=== PATIENT | female | born 1955 | race Caucasian/White ===

== ENCOUNTER 2016-06-06 11:01 | Day surgery (SDC) | payer BC ==
--- NOTE | ~2016-06-06 | EGD ---
EGD REPORT [facility] [address] [place] [address] NAME: KATHRYN DONG : [birth year] [facility]US : [facility] [place] PAT#: [id number] AGE: 60 ADM/REG DATE : 06/06/16 MR#: [id number] REPORT SERV DATE: 06/06/16 DICTATED BY: KATELYN ARREDONDO DATE: 06/06/16 REPORT STATUS : Draft [facility]ANSCRIBED BY: [facility] DATE: 06/06/16 [facility] Patient Name: Kathryn Dong Date of : 1955 Attending MD: KATELYN ARREDONDO MD Procedure Date No Time: 06/06/2016 Procedure: Colonoscopy Indications: Abnormal CT of the GI tract Medicines: Monitored Anesthesia Care Complications: No immediate complications. Procedure: Pre-Anesthesia Assessment: - ASA Grade Assessment: III - A patient with severe systemic disease. After I obtained informed consent, the scope was passed under direct vision. Throughout the procedure, the patient's blood pressure, pulse, and oxygen saturations were monitored continuously. The CF [id number] was introduced through the anus and advanced to the terminal ileum, with identification of the appendiceal orifice and IC valve. The colonoscopy was performed with moderate difficulty due to significant looping. Successful completion of the procedure was aided by applying abdominal pressure. The patient tolerated the procedure well. The quality of the bowel preparation was good. Findings: The digital rectal exam was normal. Pertinent negatives include no palpable rectal lesions. The terminal ileum appeared normal. A sessile polyp was found in the cecum. The polyp was 5 mm in size. The polyp was removed with a cold biopsy forceps. Resection and retrieval were complete. A sessile polyp was found in the transverse colon. The polyp was 5 mm in size. The polyp was removed with a cold biopsy forceps. Resection and retrieval were complete. A sessile polyp was found in the rectum. The polyp was 4 mm in size. The polyp was removed with a cold biopsy forceps. Resection and retrieval were complete. Hemorrhoids were found during retroflexion and were mild. Impression: - The examined portion of the ileum was normal. - One 5 mm polyp in the cecum. Resected and retrieved. - One 5 mm polyp in the transverse colon. Resected and retrieved. EGD REPORT [address] [place]. [address] NAME: KATHRYN DONG : [birth year] STATUS : [facility] [place] PAT#: [id number] AGE: 60 ADM/REG DATE : 06/06/16 MR#: [id number] REPORT SERV DATE: 06/06/16 DICTATED BY: KATELYN ARREDONDO DATE: 06/06/16 REPORT STATUS : Draft TRANSCRIBED BY: [employer] DATE: 06/06/16 - One 4 mm polyp in the rectum. Resected and retrieved. - Hemorrhoids. Recommendation: - Patient has a contact number available for emergencies. The signs and symptoms of potential delayed complications were discussed with the patient. Return to normal activities tomorrow. Written discharge instructions were provided to the patient. - Regular diet. - Await pathology results. - Repeat colonoscopy for surveillance based on pathology results. - Return to GI clinic in 4 weeks. - Use Levsin, NuLev (hyoscyamine) 0.125 mg 1-2 tabs SL q 4 hours PRN. Procedure Code(s): --- Professional --- 37360, Colonoscopy, flexible, proximal to splenic flexure; with biopsy, single or multiple Diagnosis Code(s): --- Professional --- K64.9, Unspecified hemorrhoids K62.1, Rectal polyp D12.3, Benign neoplasm of transverse colon D12.0, Benign neoplasm of cecum R93.3, Abnormal findings on diagnostic imaging of other parts of digestive tract CPT copyright 2013 [employer]. All rights reserved. The codes documented in this report are preliminary and upon business intelligence reporting analyst review may be revised to meet current compliance requirements. KATELYN ARREDONDO MD 06/06/2016 1:33 PM This report has been signed electronically. Number of Addenda: 0 Note Initiated On: 06/06/2016 1:00 PM Scope Withdrawal Time 0 hours 12 minutes 56 seconds [address] [place] [address]
--- NOTE | ~2016-06-06 | EGD ---
EGD REPORT [facility] [address] [address] NAME: KATHRYN DONG : [birth year] STATUS : PRE [facility] [place] PAT#: [id number] AGE: 60 ADM/REG DATE : MR#: [id number] REPORT SERV DATE: 06/06/16 DICTATED BY: KATELYN ARREDONDO DATE: 06/06/16 REPORT STATUS : Draft [facility]ANS[facility]IBED BY: [facility] DATE: 06/06/16 [facility]oscopy [facility] Patient Name: Kathryn Dong Date of : 1955 Attending MD: KATELYN ARREDONDO MD Procedure Date No Time: 06/06/2016 Procedure: Colonoscopy Indications: Screening in patient at increased risk: Colorectal cancer in father 60 or older Referring MD: KARLA OSCAR MD Medicines: Monitored Anesthesia Care Complications: No immediate complications. Procedure: Pre-Anesthesia Assessment: - ASA Grade Assessment: II - A patient with mild systemic disease. After I obtained informed consent, the scope was passed under direct vision. Throughout the procedure, the patient's blood pressure, pulse, and oxygen saturations were monitored continuously. The PCF [id number] was introduced through the anus and advanced to the terminal ileum, with identification of the appendiceal orifice and IC valve. The colonoscopy was performed without difficulty. The patient tolerated the procedure well. The quality of the bowel preparation was good. Findings: The digital rectal exam was normal. Pertinent negatives include no palpable rectal lesions. The terminal ileum appeared normal. Hemorrhoids were found during retroflexion and were moderate. A sessile polyp was found at the hepatic flexure. The polyp was 15 mm in size. The polyp was removed with a piecemeal technique using a cold snare. Resection and retrieval were complete. Two sessile polyps were found in the sigmoid colon. The polyps were 5 to 6 mm in size. These polyps were removed with a cold snare. Resection and retrieval were complete. Impression: - The examined portion of the ileum was normal. - Hemorrhoids. - One 15 mm polyp at the hepatic flexure. Resected and retrieved. - Two 5 to 6 mm polyps in the sigmoid colon. Resected and retrieved. Recommendation: - Patient has a contact number available for EGD REPORT [address] [address] NAME: KATHRYN DONG : [birth year] STATUS : PRE [facility] [place] PAT#: [id number] AGE: 60 ADM/REG DATE : MR#: [id number] REPORT SERV DATE: 06/06/16 DICTATED BY: KATELYN ARREDONDO DATE: 06/06/16 REPORT STATUS : Draft TRANSCRIBED BY: [facility] [facility] DATE: 06/06/16 emergencies. The signs and symptoms of potential delayed complications were discussed with the patient. Return to normal activities tomorrow. Written discharge instructions were provided to the patient. - Regular diet. - Continue present medications. - Await pathology results. - Repeat colonoscopy in 3 - 5 years for surveillance based on pathology results. - Return to GI clinic PRN. Procedure Code(s): --- Professional --- 38516, Colonoscopy, flexible, proximal to splenic flexure; with removal of tumor(s), polyp(s), or other lesion(s) by snare technique Diagnosis Code(s): --- Professional --- K64.9, Unspecified hemorrhoids D12.5, Benign neoplasm of sigmoid colon D12.3, Benign neoplasm of transverse colon Z12.11, Encounter for screening for malignant neoplasm of colon Z80.0, Family history of malignant neoplasm of digestive organs CPT copyright 2013 [employer]. All rights reserved. The codes documented in this report are preliminary and upon choke setter review may be revised to meet current compliance requirements. KATELYN ARREDONDO MD 06/06/2016 8:03 AM This report has been signed electronically. Number of Addenda: 0 Note Initiated On: 06/06/2016 7:36 AM Scope Withdrawal Time 0 hours 7 minutes 52 seconds [address] [id number]
--- NOTE | ~2016-06-06 | EGD ---
EGD REPORT [facility] [address] [address] NAME: KAREN DONG : [birth year] STATUS : PRE [facility] PAT#: [id number] AGE: 60 ADM/REG DATE : MR#: [id number] REPORT SERV DATE: 06/06/16 DICTATED BY: KATELYN ARREDONDO DATE: 06/06/16 REPORT STATUS : Draft TRANSCRIBED BY: [employer] DATE: 06/06/16 THIS EXAM WAS SENT IN ERROR
[~2016-06-06 11:01] MED LIST: ASAB PO; ESTRACE0.5 MG PO; HCTZ PO; LOTE20 PO; STOOL SOFTEN240 MG PO; VENTOLIN HFA INH; ZANTAC 150 PO; ZOL100 PO
== END 2016-06-06 23:59 | disposition home or self-care (01) ==
LOC: DMU 11:01
PROVIDERS: Internal Medicine Gastroenterology
PROC: 0DBP8ZZ Excision of Rectum, Via Natural or Artificial Opening Endoscopic (ICD-10-PCS; 2016-06-06)
PROC: 0DBL8ZZ Excision of Transverse Colon, Via Natural or Artificial Opening Endoscopic (ICD-10-PCS; 2016-06-06)
PROC: 0DBH8ZZ Excision of Cecum, Via Natural or Artificial Opening Endoscopic (ICD-10-PCS; principal; 2016-06-06 12:30)
DX: D12.0 Benign neoplasm of cecum (principal); D12.3 Benign neoplasm of transverse colon; K62.1 Rectal polyp; K64.9 Unspecified hemorrhoids; K21.9 Gastro-esophageal reflux disease without esophagitis; I10 Essential (primary) hypertension; E78.00 Pure hypercholesterolemia, unspecified; G47.33 Obstructive sleep apnea (adult) (pediatric); F32.9 Major depressive disorder, single episode, unspecified; Z86.73 Personal history of transient ischemic attack (TIA), and cerebral infarction without residual deficits; Z88.5 Allergy status to narcotic agent; Z79.82 Long term (current) use of aspirin; Z79.818 Long term (current) use of other agents affecting estrogen receptors and estrogen levels; Z79.899 Other long term (current) drug therapy
CPT/HCPCS: 82962; 88305